=== PATIENT | male | born 1975 ===

== ENCOUNTER 2023-07-15 07:15 | Day surgery (SDC) | payer OTHER | END 2023-07-15 13:30 | disposition home or self-care (01) | LOC: AMB-ENDOS 07:15 | PROVIDERS: ATTEND Colon & Rectal Surgery | DX: K52.89 Other specified noninfective gastroenteritis and colitis (principal); K63.5 Polyp of colon; K62.1 Rectal polyp; K57.32 Diverticulitis of large intestine without perforation or abscess without bleeding; R10.32 Left lower quadrant pain; Z20.822 Contact with and (suspected) exposure to COVID-19 ==